=== PATIENT | male | born 1965 | race Caucasian/White ===

== ENCOUNTER → 2017-02-04 | Outpatient (CLI) | payer OTHER ==
--- NOTE | 2017-02-04 14:52 | CR ---
EXAMINATION: Left wrist HISTORY: Fracture COMPARISON: 02/03/2017 TECHNIQUE: 2 views FINDINGS/IMPRESSION: There is a mildly comminuted nondisplaced distal radius fracture identified. Th ere is a mildly displaced ulnar styloid fracture otherwise noted. Cast material obscures fine detail .
== END ==
LOC: MW.CHORTHO 10:07
PROVIDERS: ATTEND Physician Assistant
DX: S62.102A Fracture of unspecified carpal bone, left wrist, initial encounter for closed fracture (principal); S52.502A Unspecified fracture of the lower end of left radius, initial encounter for closed fracture; S52.612A Displaced fracture of left ulna styloid process, initial encounter for closed fracture
CPT/HCPCS: 73100-26-LT; 73100-LT

== ENCOUNTER → 2017-02-05 | Outpatient (CLI) | payer OTHER ==
--- NOTE | 2017-02-05 16:57 | CR ---
EXAMINATION: Left wrist HISTORY: Fracture COMPARISON: 02/04/2017 TECHNIQUE: 2 views FINDINGS/IMPRESSION: There is a minimally displaced distal radius fracture again noted. There is als o an adjacent ulnar styloid fracture. Overall position and alignment appear grossly unchanged.
== END ==
LOC: MW.CHORTHO 14:39
PROVIDERS: ATTEND Physician Assistant
DX: S52.502A Unspecified fracture of the lower end of left radius, initial encounter for closed fracture (principal); S52.612A Displaced fracture of left ulna styloid process, initial encounter for closed fracture
CPT/HCPCS: 73100-26-LT; 73100-LT

== ENCOUNTER → 2017-02-11 | Outpatient (CLI) | payer OTHER ==
--- NOTE | 2017-02-12 15:05 | CR ---
EXAM DATE: 02/11/17 PATIENT'S AGE: 51 Patient: DAWIT BONE Facility: [place], [place] Site . Site : [id number] Study: XRay Extremity Left Wrist [id number]/25/2017 2:39:16 PM Ordering Physician: Robert Gandhi Pa-C Final Report: Indication: Follow up fracture. Comparison: 05 February 2017. Impression: No change in alignment. Impacted distal radial metaphysis fracture shows some increased sclerosis of presumed healing. Ulnar styloid fracture is nondisplaced. Presumed plaster cast. Dictated by Mike Whiteside MD @ Feb 12 2017 2:36PM (Electronic Signature) Report Signed by Proxy and Original Signed Document filed in the Medical Record. MTDD
== END ==
LOC: MW.CHORTHO 07:53
PROVIDERS: ATTEND Physician Assistant
DX: S62.102A Fracture of unspecified carpal bone, left wrist, initial encounter for closed fracture (principal); S52.502A Unspecified fracture of the lower end of left radius, initial encounter for closed fracture; S52.615A Nondisplaced fracture of left ulna styloid process, initial encounter for closed fracture
CPT/HCPCS: 73100-26-LT; 73100-LT

== ENCOUNTER → 2017-02-25 | Outpatient (CLI) | payer OTHER ==
--- NOTE | 2017-02-25 16:39 | CR ---
EXAMINATION: Left wrist HISTORY: Fracture COMPARISON: 02/11/2017 TECHNIQUE: 2 views FINDINGS/IMPRESSION: There is a nondisplaced distal radial metaphysis fracture identified. There is an adjacent minimally displaced ulnar styloid fracture. Overall position and alignment appear unchan ged.
== END ==
LOC: MW.CHORTHO 07:57
PROVIDERS: ATTEND Physician Assistant
DX: S62.102A Fracture of unspecified carpal bone, left wrist, initial encounter for closed fracture (principal); S52.502A Unspecified fracture of the lower end of left radius, initial encounter for closed fracture; S52.612A Displaced fracture of left ulna styloid process, initial encounter for closed fracture
CPT/HCPCS: 73100-26-LT; 73100-LT